=== PATIENT | female | born 1930 | race African-American/Black ===

== ENCOUNTER 2016-10-22 14:51 | Inpatient (IN) | payer OTHER ==
[~2016-10-22] VITALS: Ht 149.9 cm; Wt 49.1 kg
--- NOTE | ~2016-10-22 | HP ---
History And Physical [facility] [address] [place]. [address] NAME: CHERRY VELÁSQUEZ : 32 STATUS : ADM Saul PAT#: [id number] AGE: 86 ADM/REG DATE : 10/22/16 MR#: [id number] REPORT SERV DATE: 10/22/16 DICTATED BY: DARRYL SALCEDO DATE: 10/22/16 REPORT STATUS : Draft TRANSCRIBED BY: DASHAWN DATE: 10/22/16 DATE OF ADMISSION: 10/22/2016 HISTORY OF PRESENT ILLNESS: The patient is an 86-year-old female, who was brought by her family to [facility] because of her one episode of dizziness and weakness while she was ironing. According to family members, she was ironing and then she suddenly put her head on the iron board telling that she is dizzy. She denied any chest pain. No shortness of breath. She said just "I am dizzy." So, for this reason and also for the weakness all over as well as recent weight loss, the patient was brought here to [facility]. She currently denies any chest pain. No shortness of breath. No abdominal pain. No fever. No rash. No headache. She has bilateral skin changes on her both ankles, which looks like some lymphedema type changes without any evidence of acute infection and it was treated by her primary care physician, Dr. Benny Rashid. The patient denies any fever as well. REVIEW OF SYSTEMS: All 14-point review of systems done and negative except what was stated in the history of present illness. PAST MEDICAL HISTORY: The patient reported that she does not have any medical problems except hypertension. SURGICAL HISTORY: She also denies any surgical history. On further review of the patient's visit to emergency room, it was noticed that she had history of vertigo in the past in 2001 and she had a history of cellulitis in the left lower leg in 08/2015. ALLERGIES: SHE IS NOT ALLERGIC TO ANY MEDICINE. SOCIAL HISTORY: Nonsmoker, nondrinker. No recreational drug use. HOME MEDICATIONS: Fosamax 70 mg a day; Lotrel 10/40 once a day; Lumigan eyedrops ophthalmic daily; calcium with vitamin D 600 p.o. b.i.d.; Lasix 40 mg a day; naproxen 220 as needed, the patient said that she takes it occasionally; potassium chloride 10 mEq a day; Zantac 150 mg twice a day. FAMILY HISTORY: The patient reports that her both parents of old age and she does not know why they . On further questioning of the family, I ask about the patient's memory and the family reported that her memory is relatively okay. PHYSICAL EXAMINATION: GENERAL: Thin female, not in acute distress. Resting quietly. VITAL SIGNS: Blood pressure 126/59, temperature 97.8, heart rate 90, respiratory rate 14, oxygen saturation 100 on room air. HEENT: Head atraumatic, normocephalic. Conjunctivae clear. Pupils are equal and reactive to light and accommodation. Extraocular muscles are intact. NECK: Supple. Trachea is midline. No supraclavicular or cervical lymphadenopathy. History And Physical [address] [address] NAME: CHERRY VELÁSQUEZ : 32 STATUS : ADM Saul PAT#: [id number] AGE: 86 ADM/REG DATE : 10/22/16 MR#: [id number] REPORT SERV DATE: 10/22/16 DICTATED BY: DARRYL SALCEDO DATE: 10/22/16 REPORT STATUS : Draft TRANSCRIBED BY: MODBryant DATE: 10/22/16 LUNGS: Diminished breath sounds bilaterally. Decreased respiratory effort. CARDIOVASCULAR SYSTEM: Regular rate and rhythm. Point of maximal impulse not displaced. ABDOMEN: Soft, nontender, nondistended. Positive normoactive bowel sounds. No organomegaly. Very benign abdominal examination. No pain in all abdominal quadrants. EXTREMITIES: No clubbing, cyanosis. No edema. SKIN: There are some skin changes and some skin tear on her legs. It is symmetric and it does not look like infection, and the patient reported that it was treated by Dr. Dos Santos with the ointments. PSYCHIATRIC: Normal mood, flat affect. NEUROLOGIC: Awake, alert, oriented in time, place, and person. Muscle strength 5/5 bilaterally on upper and lower extremities. Deep tendon reflexes are 2/4 bilaterally on upper and lower extremities. Cranial nerves 3 through 12 grossly intact. LABORATORY RESULTS: Sodium 140, potassium 4.8, chloride 106, carbon dioxide 26, BUN 27, creatinine 1.49, blood sugar 114. ALT 17, AST 13. I would like to mention that her creatinine in 09/20/2015 one year ago available in our computer was 1.27. Lactic acid level 1.2. White count 7.8, hemoglobin 7.2, hematocrit 23.9, MCV 76.4, and platelet count 486. Hemoglobin on 09/20/2015 was 11.3. UA did not show any evidence of UTI. Chest x-ray, which was done today in the emergency room revealed cardiac silhouette within normal limits. There is opacity overlying the central lower chest and medial left lower chest. Lungs are clear without focal airspace consolidation. Lungs are hyperinflated with diminished marking in the upper lobes. No pleural effusion or pneumothorax. Suspected moderate to large hiatal hernia, changes of COPD. The patient also had bilateral lower extremity venous duplex ultrasound, which was done here in the emergency room, but it is not read, so my partner needs to check on it. ASSESSMENT AND PLAN: 1. This is an 86-year-old female, who has a history of hypertension presented with anemia most likely chronic blood loss versus anemia of chronic disease with low MCV. We will check her stool Hemoccult x3. We will type and screen this patient and give one unit of blood transfusion especially with a history of weight loss we will ask Gastroenterology, Dr. Hilliard to evaluate this patient for possible endoscopy as well as I told family not to use any nonsteroidals, not to use naproxen. 2. Dizziness, question if this is related to anemia versus if this is related to dehydration also. She has mild acute kidney injury on chronic kidney disease with prerenal azotemia. We will put her on gentle IV fluid hydration. Question if she is orthostatic. We will check her orthostatics. 3. We will also check her echocardiogram for dizziness. Opacity on the chest x-ray, I will order CT of the chest without contrast on this patient. I will also check her serum B12 and folic acid level, magnesium, and TSH. My partner will see this patient starting tomorrow morning. We will check on the results of bilateral duplex venous ultrasound, which was done by emergency room physician as well as I will ask Wound Care to do wound care on her open skin on her lower extremities. I do not think it represents infection. We will check her procalcitonin as well. History And Physical [place] [address] [address] [place]. [address] NAME: CHERRY VELÁSQUEZ : 32 STATUS : ADM Saul PAT#: [id number] AGE: 86 ADM/REG DATE : 10/22/16 MR#: [id number] REPORT SERV DATE: 10/22/16 DICTATED BY: DARRLY SALCEDO DATE: 10/22/16 REPORT STATUS : Draft TRANSCRIBED BY: MODL DATE: 10/22/16 MG/DASHAWN Darryl Salcedo M.D. / [id number] CC: Zac Dos Santos M.D.
--- NOTE | ~2016-10-22 | DS ---
Discharge Summary [facility] [address] [place]. [address] NAME: CHERRY VELÁSQUEZ : 32 STATUS : ADM Saul PAT#: [id number] AGE: 86 ADM/REG DATE : 10/22/16 MR#: [id number] REPORT SERV DATE: 10/25/16 DICTATED BY: JANETH MOFFETT DATE: 10/25/16 REPORT STATUS : Draft TRANSCRIBED BY: MODL DATE: 10/25/16 ADMISSION DATE: 10/22/2016 DISCHARGE DATE: FINAL DIAGNOSES: This is an 86-year-old female with final diagnoses of: 1. Symptomatic iron deficiency anemia status post one unit packed red blood cells. 2. Hypertension. 3. Chronic kidney disease 2. DIAGNOSTIC EXAMS: Chest x-ray showing COPD with a focal airspace disease suspected moderate- to-large hiatal hernia. Ultrasound of the lower extremity showing no DVT. CAT scan of the chest without contrast showing slight hyperinflation, hiatal hernia, minimal linear atelectasis or fibrosis in the right lower lung, otherwise clear. Scoliosis and spondylosis. Minimal atherosclerotic calcification. No evidence of acute abnormality within the chest. Echocardiogram showing normal left ventricular size with preserved EF of 55-60%, mild diastolic dysfunction, mild left atrial enlargement, normal right ventricular size and systolic function. Trace mild aortic, mitral and tricuspid regurgitation. HOSPITAL COURSE: Please refer to the H and P done by Dr. Taedo dated on 10/22/2016. Briefly, this is an 86-year-old female brought to the family for an episode of dizziness and near syncope. The patient was evaluated and was found to be symptomatically anemic with an H and H of 7.2 and 23.9. There was no note of any history of bleeding at all. She got one unit of packed RBC and on discharge, the H and H is 9.5 and 29.6. She does not have any more symptoms. Vital signs remained stable, and she wanted to go home. We got Dr. Kate involved and he wanted to do a Hemoccult, if that is positive she will need a colonoscopy, if that is negative he cleared the patient for discharge. The patient had a Hemoccult and that was negative. The patient will now be discharged with the above diagnosis. She will be following up with this PCP in one to two weeks, Dr. Dos Santos. Follow up with Dr. Kate in about a month. She will be on the following medications: 1. Lotrel 10/40 mg one tab p.o. daily. 2. Calcium plus D 600 mg twice a day. 3. Zantac 150 mg twice a day. 4. Lumigan to both eyes. She will be off the Lasix, potassium, naproxen, and she will be given a prescription for iron at 325 mg p.o. t.i.d. She was warned that if there is any bleeding, weakness, syncopal episode, not to hesitate to come back to the emergency room. She was also told to take epby-xyy-frmotht MiraLAX or Discharge Summary [address] [place]. [address] NAME: CHERRY VELÁSQUEZ : 32 STATUS : ADM Saul PAT#: [id number] AGE: 86 ADM/REG DATE : 10/22/16 MR#: [id number] REPORT SERV DATE: 10/25/16 DICTATED BY: JANETH MOFFETT. DATE: 10/25/16 REPORT STATUS : Draft TRANSCRIBED BY: DASHAWN DATE: 10/25/16 Metamucil as the iron can give her constipation, and it will also turn her stools black, and if this happens not to forget to follow up with her PCP to make sure that her H and H are followed. She agreed and understood the plan. TIME SPENT: 40 minutes. CONOR/DASHAWN Janeth Moffett M.D. / [id number] CC: Efrain Gonsales M.D.
--- NOTE | ~2016-10-22 | CN ---
Consultation Report [facility] [address] [place]. [address] NAME: CHERRY VELÁSQUEZ : 32 STATUS : ADM Saul PAT#: [id number] AGE: 86 ADM/REG DATE : 10/22/16 MR#: [id number] REPORT SERV DATE: 10/24/16 DICTATED BY: YNES CHAHAL DATE: 10/23/16 REPORT STATUS : Draft TRANSCRIBED BY: DASHAWN DATE: 10/23/16 DATE OF CONSULTATION: 10/23/2016 REASON FOR CONSULTATION: Admitted with severe anemia. HISTORY OF PRESENT ILLNESS: This is an 86-year-old lady who was brought to the ER with family with complaints of having feeling dizziness while she was ironing. She denies any abdominal pain, nausea, vomiting, only complaints of sudden onset of the weakness. On further examination, the patient was admitted to feeling weak for the past several days and has no nausea or vomiting. Has no black stools. Has no chest pain. No shortness of breath. No palpitation. In the ER, she was evaluated and found to have a hemoglobin of 7.2, hence was admitted. REVIEW OF SYSTEMS: A 14-point review of system is normal. PAST MEDICAL HISTORY: Significant for only hypertension. PAST SURGICAL HISTORY: Significant for colonoscopy in 08/2005, has history of cellulitis in her left lower leg. ALLERGIES: NO ALLERGIES KNOWN. SOCIAL HISTORY: Does not smoke any cigarettes. Does not take any IV drugs. Does not take any alcohol. HOME MEDICATIONS: Fosamax 70 mg a day, Lotrel 10/40 once a day, Lasix 40 mg a day, naproxen 220 mg as needed, Lumigan eye drops. She occasionally takes potassium chloride 10 mEq per day and Zantac 150 mg p.o. twice daily. FAMILY HISTORY: Nil significant. PHYSICAL EXAMINATION: VITAL SIGNS: BP is 126/50. Temperature is normal. Peripheral pulses are well felt. Heart rate is 90. Respiratory rate is 14. NECK: Supple. Trachea is central. Carotids are well felt on both sides. CARDIOVASCULAR SYSTEM: S1 and S2 are heard. There is no S3. EXTREMITIES: Dorsalis pedis and posterior tibial are well felt on both sides. DESIGN CONSULTANT: Higher function. Cranial nerves and reflexes are normal. PSYCHIATRIC: Evaluation is normal. LABORATORY DATA: Lab shows BUN, creatinine, and electrolytes to be normal. BUN is 27, creatinine is 1.49. Blood sugar is 114. Liver enzymes are normal. White cell count is 7.8, hemoglobin is 7.2, hematocrit is 23.9, platelet count is 486. Consultation Report [facility] [address] [place]. [address] NAME: CHERRY VELÁSQUEZ : 32 STATUS : ADM Saul PAT#: [id number] AGE: 86 ADM/REG DATE : 10/22/16 MR#: [id number] REPORT SERV DATE: 10/24/16 DICTATED BY: YNES CHAHAL DATE: 10/23/16 REPORT STATUS : Draft TRANSCRIBED BY: DASHAWN DATE: 10/23/16 IMPRESSION: This is an 86-year-old lady, admitted with sudden onset of weakness, found to have a hemoglobin of 7.2. PLAN: 1. Would check stools for Hemoccult. Would transfuse 2 units of blood to bring it above 9. If there is no blood in the stools, would discharge her home and keep her on ferrous sulfate 325 mg p.o. t.i.d. for three months and follow up with me in the GI Clinic. 2. Has mild renal insufficiency. Would follow this. 3. Has hypertension. Would continue her treatment for hypertension. 4. Has intermittent mild reflux disease. Would continue ranitidine 150 mg p.o. b.i.d. p.r.n. 5. If the patient continues to have heme-positive stools, would require a colonoscopy. BRAYDEN/DASHAWN Ynes Chahal M.D. / [id number] CC: Efrain Gonsales NABIL N.
[2016-10-22 16:32] LABS: WBC (NOT ORDERED) (RFLEX) 0 (0-5)
[2016-10-22 16:37] LABS: BASOPHILS 0.5 %; BASOPHILS ABSOLUTE 0.04 10/3/uL (0.0-0.16); EOSINOPHILS 0.3 %; EOSINOPHILS ABSOLUTE 0.02 10/3/uL (0.0-0.53); ER CBC TAT 0 Hrs 08 Mins; IMMATURE GRANULOCYTES 0.1 %; IMMATURE GRANULOCYTES ABSOLUTE 0.01 10/3/uL (0.0-0.11); LYMPHOCYTES 6.4 %; MEAN PLATELET VOLUME 9.1 fL (9.2-13.0); MONOCYTES 5.3 %; MONOCYTES ABSOLUTE 0.41 10/3/uL (0.21-1.20); NEUTROPHILS 87.4 %; NEUTROPHILS ABSOLUTE 6.78 10/3/uL (2.02-8.40); WHITE BLOOD CELLS 7.8 10/3/uL (4.5-10.5)
[2016-10-22 16:39] LABS: HEMATOCRIT 23.9 % (36.0-48.0); HEMOGLOBIN 7.2 g/dL (12.0-16.0); MEAN CORPUS HGB CONC 30.1 g/dL (32.0-36.0); MEAN CORPUSCULAR VOLUME 76.4 fL (80-100); PLATELET COUNT 486 10/3/uL (150-400); RBC DISTRIBUTION WIDTH 17.3 % (12.0-16.0); RED CELL COUNT 3.13 10/6/uL (4.0-5.6)
[2016-10-22 16:40] LABS: MANUAL DIFF NO %
[2016-10-22 16:45] LABS: ASCORBIC ACID (UR NOT ORDER) 40 (NEG); BILIRUBIN, URINE NEGATIVE (NEG); ER URINALYSIS TAT 0 Hrs 16 Mins; KETONE, URINE NEGATIVE (NEG); LEUKOCYTE ESTERASE(NOT OR NEG (NEG); NITRITE (URINE) NEG (NEG)
[2016-10-22 16:50] LABS: INFLUENZA A SCREEN NEGATIVE (NEGATIVE); INFLUENZA B SCREEN NEGATIVE (NEGATIVE)
[2016-10-22 16:55] LABS: ALBUMIN 3.5 G/DL (3.5-5.0); CALCIUM, SERUM 9.1 MG/DL (8.5-10.4); CHLORIDE, SERUM 106 MMOL/L (96-112); CO2 (CARBON DIOXIDE) 26 MMOL/L (24-34); CREATININE 1.49 MG/DL (0.55-1.02); GFR AFRICAN AMERICAN 37 ML/MIN (>=60); GFR NON AFRICAN AMERICAN 32 ML/MIN (>=60); GLOBULIN 3.6 G/DL (2.5-4.1); POTASSIUM, SERUM 4.8 MMOL/L (3.5-5.3); SGOT(AST) 13 U/L (5-40); SGPT(ALT) 17 U/L (5-65); SODIUM, SERUM 140 MMOL/L (135-148); TOTAL BILIRUBIN 0.2 MG/DL (0-1.2); TOTAL PROTEIN 7.1 G/DL (6.0-8.5)
[2016-10-22 16:56] LABS: ALKALINE PHOSPHATASE 62 U/L (45-117); BUN (BLOOD UREA NITROGEN) 27 MG/DL (6-23); GLUCOSE, SERUM 114 MG/DL (60-99)
[2016-10-22 16:56] LABS: LACTATE 1.2 MMOL/L (0.3-2.4)
[2016-10-22] MEDS ORDERED: LOTREL1 CA5 PO (18:55)
[2016-10-22] MEDS ORDERED: ZANTAC 150 PO (18:55)
[2016-10-22] MEDS ORDERED: FOSAMAX70 MG PO (18:56)
[2016-10-22] MEDS ORDERED: L40 PO (18:56)
[2016-10-22] MEDS ORDERED: ALEVE220 MG PO (18:57)
[2016-10-22] MEDS ORDERED: CALTRA600D PO (18:57)
[2016-10-22] MEDS ORDERED: KLOR-CON 1010 MEQ PO (18:57)
[2016-10-22] MEDS ORDERED: LUMIGAN2.5 ML OPH (19:01)
[2016-10-22 23:09] LABS: PROCALCITONIN <0.05 ng/mL (<0.5)
[2016-10-22 23:27] LABS: TROPONIN I <0.02 NG/ML (<0.05)
[2016-10-22 23:28] LABS: FOLATE 71.3 NG/ML (>5.2)
[2016-10-23 02:27] LABS: FERRITIN 9 NG/ML (8-252); IRON BINDING CAPACITY 393 MCG/DL (225-410); IRON, SERUM 14 MCG/DL (35-150); TROPONIN I <0.02 NG/ML (<0.05)
[2016-10-23 05:10] LABS: BASOPHILS 0.7 %; BASOPHILS ABSOLUTE 0.05 10/3/uL (0.0-0.16); EOSINOPHILS 2.6 %; EOSINOPHILS ABSOLUTE 0.18 10/3/uL (0.0-0.53); IMMATURE GRANULOCYTES 0.1 %; IMMATURE GRANULOCYTES ABSOLUTE 0.01 10/3/uL (0.0-0.11); LYMPHOCYTES 22.1 %; LYMPHOCYTES ABSOLUTE 1.54 10/3/uL (0.67-4.30); MEAN CORPUS HGB CONC 31.3 g/dL (32.0-36.0); MEAN CORPUSCULAR HEMOGLOB 24.4 pg (26.0-34.0); MEAN PLATELET VOLUME 9.3 fL (9.2-13.0); MONOCYTES ABSOLUTE 0.77 10/3/uL (0.21-1.20); NEUTROPHILS 63.5 %; NEUTROPHILS ABSOLUTE 4.42 10/3/uL (2.02-8.40); PLATELET COUNT 458 10/3/uL (150-400); RED CELL COUNT 3.69 10/6/uL (4.0-5.6)
[2016-10-23 05:11] LABS: HEMATOCRIT 28.8 % (36.0-48.0)
[2016-10-23 05:12] LABS: MANUAL DIFF NO %
[2016-10-23 05:16] LABS: CALCIUM, SERUM 8.9 MG/DL (8.5-10.4); CHLORIDE, SERUM 110 MMOL/L (96-112); CO2 (CARBON DIOXIDE) 24 MMOL/L (24-34); CREATININE 1.34 MG/DL (0.55-1.02); GFR AFRICAN AMERICAN 42 ML/MIN (>=60); GFR NON AFRICAN AMERICAN 36 ML/MIN (>=60); POTASSIUM, SERUM 4.2 MMOL/L (3.5-5.3); SODIUM, SERUM 141 MMOL/L (135-148)
[2016-10-23 05:17] LABS: BUN (BLOOD UREA NITROGEN) 22 MG/DL (6-23); GLUCOSE, SERUM 83 MG/DL (60-99)
[2016-10-23 12:25] LABS: A/G 1.23 RATIO (0.9-2.10); ALB RELATIVE % 55.1 % (60.0-89.0); ALBUMIN (ELECTRO) 3.31 GM/DL (3.2-5.5); ALPHA 1 (ELECTRO) 0.25 GM/DL (0.1-0.4); ALPHA 1 RELAT % (NOT ORD) 4.1 % (1.0-4.0); ALPHA 2 (ELECTRO) 0.79 GM/DL (0.5-1.10); ALPHA 2 RELAT % 13.1 % (4.5-26.0); BETA GLOBULIN (SPE) 0.72 GM/DL (0.60-1.30); GAMMA GLOBULIN (SPE) 0.94 G/DL (0.70-1.60); GAMMA RELAT % 15.7 % (6.0-22.0)
[2016-10-24 06:31] LABS: BASOPHILS 0.9 %; BASOPHILS ABSOLUTE 0.06 10/3/uL (0.0-0.16); EOSINOPHILS 5.9 %; EOSINOPHILS ABSOLUTE 0.39 10/3/uL (0.0-0.53); HEMOGLOBIN 7.7 g/dL (12.0-16.0); IMMATURE GRANULOCYTES 0.2 %; IMMATURE GRANULOCYTES ABSOLUTE 0.01 10/3/uL (0.0-0.11); LYMPHOCYTES 16.6 %; MEAN CORPUS HGB CONC 30.6 g/dL (32.0-36.0); MEAN CORPUSCULAR HEMOGLOB 23.9 pg (26.0-34.0); MEAN CORPUSCULAR VOLUME 78.3 fL (80-100); MEAN PLATELET VOLUME 8.8 fL (9.2-13.0); MONOCYTES 10.4 %; MONOCYTES ABSOLUTE 0.69 10/3/uL (0.21-1.20); NEUTROPHILS ABSOLUTE 4.38 10/3/uL (2.02-8.40); PLATELET COUNT 391 10/3/uL (150-400); RBC DISTRIBUTION WIDTH 18.1 % (12.0-16.0); RED CELL COUNT 3.22 10/6/uL (4.0-5.6); WHITE BLOOD CELLS 6.6 10/3/uL (4.5-10.5)
[2016-10-24 06:32] LABS: HEMATOCRIT 25.2 % (36.0-48.0); MANUAL DIFF NO %
[2016-10-24 06:41] LABS: BUN (BLOOD UREA NITROGEN) 20 MG/DL (6-23); CALCIUM, SERUM 8.3 MG/DL (8.5-10.4); CHLORIDE, SERUM 114 MMOL/L (96-112); CO2 (CARBON DIOXIDE) 22 MMOL/L (24-34); CREATININE 0.96 MG/DL (0.55-1.02); GFR AFRICAN AMERICAN 63 ML/MIN (>=60); GFR NON AFRICAN AMERICAN 54 ML/MIN (>=60); GLUCOSE, SERUM 89 MG/DL (60-99); POTASSIUM, SERUM 4.3 MMOL/L (3.5-5.3); SODIUM, SERUM 143 MMOL/L (135-148)
[2016-10-25 06:08] LABS: BASOPHILS 0.9 %; BASOPHILS ABSOLUTE 0.06 10/3/uL (0.0-0.16); EOSINOPHILS ABSOLUTE 0.34 10/3/uL (0.0-0.53); IMMATURE GRANULOCYTES 0.3 %; IMMATURE GRANULOCYTES ABSOLUTE 0.02 10/3/uL (0.0-0.11); LYMPHOCYTES 22.8 %; LYMPHOCYTES ABSOLUTE 1.55 10/3/uL (0.67-4.30); MEAN CORPUS HGB CONC 32.1 g/dL (32.0-36.0); MEAN CORPUSCULAR HEMOGLOB 25.2 pg (26.0-34.0); MEAN CORPUSCULAR VOLUME 78.5 fL (80-100); MEAN PLATELET VOLUME 9.4 fL (9.2-13.0); MONOCYTES 10.7 %; MONOCYTES ABSOLUTE 0.73 10/3/uL (0.21-1.20); NEUTROPHILS 60.3 %; PLATELET COUNT 451 10/3/uL (150-400); RBC DISTRIBUTION WIDTH 18.5 % (12.0-16.0); RED CELL COUNT 3.77 10/6/uL (4.0-5.6); WHITE BLOOD CELLS 6.8 10/3/uL (4.5-10.5)
[2016-10-25 06:09] LABS: HEMATOCRIT 29.6 % (36.0-48.0); HEMOGLOBIN 9.5 g/dL (12.0-16.0); MANUAL DIFF NO %
[2016-10-25] MEDS ORDERED: HEMOCYTE324 MG PO (11:39)
== END 2016-10-25 12:29 | disposition home or self-care (01) | DRG 812 ==
LOC: ER 14:51 → 5NO 20:10
PROVIDERS: Hospitalist; Internal Medicine; Student in an Organized Health Care Education/Training Program
PROC: 30233N1 Transfusion of Nonautologous Red Blood Cells into Peripheral Vein, Percutaneous Approach (ICD-10-PCS; principal; 2016-10-22)
DX: D50.9 Iron deficiency anemia, unspecified (principal); I12.9 Hypertensive chronic kidney disease with stage 1 through stage 4 chronic kidney disease, or unspecified chronic kidney disease; N18.2 Chronic kidney disease, stage 2 (mild); K44.9 Diaphragmatic hernia without obstruction or gangrene; M47.9 Spondylosis, unspecified
CPT/HCPCS: 36415; 71010; 71250; 80048; 80053; 81001; 82272; 82607; 82728; 82746; 83540; 83550; 83605; 83735; 83880; 84145; 84155; 84165; 84443; 84484; 85025; 86850; 86900; 86901; 86920; 87040; 87804; 93005; 93306; 93971; 99285; A9270-GY; P9016